=== PATIENT | female | born 1940 | race Caucasian/White ===

== ENCOUNTER 2016-08-10 07:37 | Emergency (ER) | payer OTHER ==
[~2016-08-10] VITALS: Ht 160 cm; Wt 95.3 kg
[~2016-08-10 07:37] MED LIST: MEDROL DOSEPAK1 PAC PO; TORADOL10 MG PO; VICODIN5-300 PO
--- NOTE | 2016-08-10 07:52 | ED GENERAL ADULT ---
History of Present Illness General Chief Complaint: Lower Extremity Problems Stated Complaint: L LEG PAIN AND SWELLING Source: patient Exam Limitations: no limitations Vital Signs & Intake/Output Vital Signs & Intake/Output Vital Signs Date Time Temp Pulse Resp B/P Pulse O2 O2 Flow FiO2 Ox Delivery Rate 08/10 0744 98.1 64 16 196/95 99 Room Air Allergies Coded Allergies: NO KNOWN ALLERGIES (05/01/15) Reconcile Medications HYDROCODONE/ACETAMINOPHEN (Hydrocodon-Acetaminophen 5-325) 1 TAB TAB 1 TAB PO Q4-6 PRN PAIN Ketorolac Tromethamine (Toradol) 10 MG TAB 1 TAB PO BID PAIN Methylprednisolone. (Medrol) 1 PAC PAC 1 PAC PO AD INFLAMMATION Triage Note: 75 Y/O FEMALE C/O "ACHING" PAIN DOWN L LEG X 3-4 DAYS. STATES SHE MOVED A COUCH A FEW DAYS AGO BUT CANNOT RECALL ANY OTHER TRAUMA OR INJURIES. HAS BEEN TAKING VICODIN WITH LITTLE RELIEF (LAST DOSE MIDDLE OF THE NIGHT). PT HAD OUTPATIENT ULTRASOUND 08/08/16 WHICH WAS NEGATIVE FOR DVT - HAS REPORT WITH HER. Triage Nurses Notes Reviewed? 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 No Review of Systems Review of Systems Constitutional: Denies: fever. EENTM: Denies: visual changes. Respiratory: Reports: no symptoms. Cardiovascular: Reports: no symptoms. GI: Reports: no symptoms. Genitourinary: Reports: no symptoms. Physical Exam Physical Exam General Appearance: alert, awake Comments: There is tenderness to the left lower extremity no ligament instability Core Measures ACS in differential dx? No CVA/TIA Diagnosis: No Severe Sepsis Present: No Septic Shock Present: No Progress Differential Diagnoses I considered the following diagnoses in my evaluation of the patient: [DVT, no fracture, tendinitis,] Plan of Care: The patient will follow-up with the orthopedist Initial ED EKG: none Departure Departure Disposition: HOME OR SELF CARE Condition: Stable Clinical Impression Primary Impression: Strain of left knee and leg Referrals: ANTHONY FLOOD (PCP/Family) Departure Forms: Customer Survey General Discharge Information Admission Note Spoke With: GAYLA PEREZ,DORETHA Long Documentation of Exam: Documentation of any treatments & extenuating circumstances including Concerns Regarding Discharge (functional status, medication knowledge or non-compliance, living conditions, etc.) that warrant an admission rather than observation: Critical Care Note Critical Care Note Critical Care Time: non-applicable
--- NOTE | 2016-08-10 10:08 | ED GENERAL ADULT ---
History of Present Illness General Chief Complaint: Lower Extremity Problems Stated Complaint: L LEG PAIN AND SWELLING Source: patient, family Exam Limitations: no limitations Vital Signs & Intake/Output Vital Signs & Intake/Output Vital Signs Date Time Temp Pulse Resp B/P Pulse O2 O2 Flow FiO2 Ox Delivery Rate 08/10 1034 98.2 53 18 172/98 97 Room Air 08/10 0744 98.1 64 16 196/95 99 Room Air Allergies Coded Allergies: NO KNOWN ALLERGIES (05/01/15) Reconcile Medications HYDROCODONE/ACETAMINOPHEN (Hydrocodon-Acetaminophen 5-325) 1 TAB TAB 1 TAB PO Q4-6 PRN PAIN Ketorolac Tromethamine (Toradol) 10 MG TAB 1 TAB PO BID PAIN Methylprednisolone. (Medrol) 1 PAC PAC 1 PAC PO AD INFLAMMATION Triage Note: 75 Y/O FEMALE C/O "ACHING" PAIN DOWN L LEG X 3-4 DAYS. STATES SHE MOVED A COUCH A FEW DAYS AGO BUT CANNOT RECALL ANY OTHER TRAUMA OR INJURIES. HAS BEEN TAKING VICODIN WITH LITTLE RELIEF (LAST DOSE MIDDLE OF THE NIGHT). PT HAD OUTPATIENT ULTRASOUND 08/08/16 WHICH WAS NEGATIVE FOR DVT - HAS REPORT WITH HER. Triage Nurses Notes Reviewed? yes HPI: 75-year-old woman seen for evaluation of 8/10 achy left leg pain for the past 3- 4 days. She reports recently moving a couch and denies any other trauma or injury. She does admit to mildly increased activity recently. The pain is located at the lateral left thigh/hip with radiation down to her calf. She takes naproxen twice a day for her arthritis offers her no relief. Last night she took 2 Vicodin tablets left over from a shoulder surgical procedure that only put her to sleep and did not reduce her pain. She took another tablet of Vicodin this morning that offered her no relief. She denies any altered sensation, urinary/fecal incontinence or saddle anesthesia. (ELIJAH PEREZ,JOSHUA) Past History Travel History Traveled to [place] past 21 day No Medical History Any Pertinent Medical History? 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 Yes (JOSHUA NAVA MD) Review of Systems Review of Systems Constitutional: Reports: see HPI. (JOSHUA NAVA MD) Physical Exam Physical Exam General Appearance: well developed/nourished, no apparent distress, alert, awake , comfortable Comments: General -well-developed, well-nourished obese elderly woman in no acute distress HEENT - NCAT, PERRL, EOMI, anicteric sclera Cardio - S1, S2 w/o murmurs/gallops/rubs Resp -bibasilar wheezing without crackles GI - soft, nontender, nondistended, bowel sounds present Neuro - Awake and alert, CN II - XII grossly intact Extremities - no edema, pulses intact, positive left straight leg test, staggered painful gait, unable to touch toes, no spinal tenderness Core Measures ACS in differential dx? No CVA/TIA Diagnosis: No Severe Sepsis Present: No Septic Shock Present: No (JOSHUA NAVA MD) Progress Differential Diagnoses I considered the following diagnoses in my evaluation of the patient: Sciatic nerve impingement, Lumbosacral strain, cord compression, herniated disc Plan of Care: Current Medications Sig/Vani Start time Last Medication Dose Stop Time Status Admin Ketorolac 30 MG ONCE ONE 08/10 1045 AC Tromethamine 08/10 1046 (Toradol) Initial ED EKG: none Comments: Given patient's positive straight leg test on the left without history of any inciting trauma or injury it is likely that patient is experiencing sciatic nerve pain. She was given intramuscular Toradol for pain relief. She follows with Dr. Whitlock as her primary care provider, Dr. Alcantara for her orthopedic issues and Dr. Garrido for injections in her neck. She was instructed to follow- up with these providers after discharge for further care and evaluation of her left leg pain. She was discharged with a prescription for ibuprofen 800 mg. (JOSHUA NAVA MD) Differential Diagnoses I considered the following diagnoses in my evaluation of the patient: Comments: I've evaluated more and personally. She has no known history of sciatica so we have discussed the possibility of this along with nerve root impingement secondary to disc herniation. I offered imaging here in the emergency department to rule out such a disease process but the patient has declined instead deferring to evaluation with Dr. Jerez. She will contact his office today for a follow-up appointment as soon as possible. (ALIZA PEREZ,JOSE Thompson) Departure Departure Disposition: HOME OR SELF CARE Condition: Stable Clinical Impression Primary Impression: Sciatic leg pain Referrals: CAROLYN PEREZ,ANTHONY VARGAS (PCP/Family) ANDERSON PEREZ,MARK Desouza Departure Forms: Customer Survey General Discharge Information (JOSHUA NAVA MD) Resident Co-Sign Statement Statement: ED Attending supervision documentation- [x] I saw and evaluated the patient. I have also reviewed all the pertinent lab results and diagnostic results. I agree with the findings and the plan of care as documented in the Resident's documentation. [] I have reviewed the ED Record and agree with the Resident's documentation. [] Additions or exceptions (if any) to the Resident's note and plan are summarized below: [] (ALIZA PEREZ,JOSE Thompson) Critical Care Note Critical Care Note Critical Care Time: non-applicable (JOSHUA NAVA MD)
[2016-08-10 10:34] VITALS: BP 172/98
[2016-08-10] MEDS ORDERED: MOBIC7.5 M1 PO (10:58)
[2016-08-10] MEDS ORDERED: VICODIN 5-3001 EACH PO (10:58)
== END 2016-08-10 11:09 ==
LOC: ERH 07:37
DX: M54.32 Sciatica, left side (principal)
CPT/HCPCS: 96372; J1885

== ENCOUNTER 2017-09-17 09:59 | Inpatient (IN) | payer OTHER ==
[~2017-09-17] VITALS: Ht 160 cm; Wt 86.2 kg
[~2017-09-17 09:59] MED LIST changes: +ALEVE220 M2 PO; +ALLOPURINOL100 M1 PO; +AMLODIPINE BESYL5 M1 PO; +ASPIRIN81 M4 PO; +ATENOLOL50 M1 PO; +ATORVASTATIN CA40 M1 PO; +BREO ELLIPTA 11 EACH INH; +CHROMIUM PIC1000 MCG PO; +DAILY MULTIPLE1 EACH PO; +FLUOXETINE HCL20 M2 PO; +FUROSEMIDE20 M1 PO; +GLUCOSAMINE H1500 MG PO; +LEVOTHYROXINE100 MC1 PO; +LORAZEPAM0.5 M1 PO; +MAGNESIUM OXID400 M1 PO; +METFORMIN HCL500 M4 PO; +MOBIC7.5 M1 PO; +PLAVIX75 M1 PO; +POTASSIUM CHLO10 ME5 PO; +PROBIOTIC1 EACH PO; +SIMVASTATIN20 M2 PO; +TYLENOL WITH C1 EACH PO; +VALSARTAN-HCTZ1 EAC3 PO; +VALSARTAN320 M1 PO; +VICODIN 5-3001 EACH PO; +VITAMIN B-121000 MC3 PO; +VITAMIN D32000 UNI1 PO
--- NOTE | 2017-09-17 12:17 | ED GENERAL ADULT ---
History of Present Illness General Chief Complaint: General Adult Stated Complaint: PER DAUGHTER CAN'T WALK, SWOLLEN Source: patient, family Exam Limitations: no limitations Vital Signs & Intake/Output Vital Signs & Intake/Output Vital Signs Date Time Temp Pulse Resp B/P B/P Pulse O2 O2 Flow FiO2 Mean Ox Delivery Rate 09/17 1240 97.8 66 18 124/71 98 Room Air 09/17 1151 Room Air 09/17 1022 97.7 62 20 122/66 96 Room Air Allergies Coded Allergies: NO KNOWN ALLERGIES (05/01/15) Reconcile Medications Allopurinol 100 MG TABLET 1 TAB PO DAILY GOUT (Reported) Amlodipine Besylate 5 MG TABLET 5 MG PO DAILY HTN . Aspirin (Aspirin*) 81 MG TAB.CHEW 1 TAB PO DAILY HEART HEALTH (Reported) Atenolol 50 MG TABLET 1 TAB PO DAILY HEART (Reported) Atorvastatin Calcium 40 MG TABLET 40 MG PO 2030 STROKE PREVENTION . Cholecalciferol (Vitamin D3) (Vitamin D3) 2,000 UNIT TABLET 1 TAB PO DAILY VITAMIN SUPPORT (Reported) Chromium Picolinate 1,000 MCG TABLET 0.5 TAB PO DAILY SUPPLEMENT (Reported) Clopidogrel Bisulfate (Plavix) 75 MG TABLET 75 MG PO DAILY STROKE PREVENTION . Cyanocobalamin (Vitamin B-12) 1,000 MCG TABLET 1 TAB PO DAILY VITAMIN SUPPORT (Reported) Fluoxetine HCl 20 MG CAPSULE 2 CAP PO DAILY DEPRESSION (Reported) Fluticasone/Vilanterol (Breo Ellipta 100-25 Mcg INH) 100 MCG-25 MCG/DOSE BLST.W.DEV 1 PUFF INH DAILY BREATHING PROBLEMS (Reported) Lactobacillus Acidophilus (Probiotic) 10 BILLION CELL CAPSULE 1 CAP PO DAILY GI (Reported) Levothyroxine Sodium 100 MCG TABLET 1 TAB PO DAILY AC THYROID (Reported) Lorazepam 0.5 MG TABLET 1 TAB PO BIDP PRN DEPRESSION (Reported) Magnesium Oxide 400 MG TABLET 1 TAB PO TID SUPPLEMENT (Reported) Metformin HCl (Metformin HCl ER) 500 MG TAB.ER.24H 1 TAB PO TID DIABETES ( Reported) Multivitamin (Daily Multiple Vitamin) 1 EACH TABLET 1 TAB PO DAILY VITAMIN SUPPORT (Reported) Potassium Chloride 10 MEQ TAB.ER.PRT 1 TAB PO DAILY PRN VITAMIN (Reported) Tylenol With Codeine (Tylenol With Codeine #3 Tablet) 300 MG-30 MG TABLET 1 TAB PO BIDP PRN PAIN Valsartan 320 MG TABLET 1 TAB PO DAILY HEART (Reported) Valsartan/Hydrochlorothiazide (Valsartan-Hctz 320-25 MG Tab) 320 MG-25 MG TABLET 1 TAB PO DAILY HTN (Reported) Triage Note: PT STATES SWELLING IN ARMS, LEGS, HANDS X 1 WEEK. PT STATES SHE HAD BLOOD WORK FOR [employer] SUNDAY WHICH WAS NEG. UNABLE TO WALK D/T SWELLING Triage Nurses Notes Reviewed? yes Onset: Abrupt Duration: week(s):, constant, continues in ED Timing: recent history Injury Environment: home No Modifying Factors: none HPI: 77-year-old female comes into emergency room for diffuse generalized pain. She reports that she has increased swelling in her legs and arms. She was admitted back in fall time of 2017 for a CVA. [facility] was [facility] from [facility] about [facility] weeks ago. For the past week she has had increased weakness and cannot ambulate. She has diffuse pain especially in her legs and arms bilaterally. Denies any fever chills vomiting cough. Comes in for further evaluation from home. (Edmond Piper) Past History Travel History Traveled to [place] past 21 day No Medical History Any Pertinent Medical History? 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 No (Edmond Piper) Review of Systems Review of Systems Constitutional: Reports: see HPI. EENTM: Reports: no symptoms. Respiratory: Reports: no symptoms. Cardiovascular: Reports: no symptoms. GI: Reports: no symptoms. Genitourinary: Reports: no symptoms. Musculoskeletal: Reports: see HPI. Skin: Reports: no symptoms. Neurological/Psychological: Reports: no symptoms. Hematologic/Endocrine: Reports: no symptoms. Immunologic/Allergic: Reports: no symptoms. All Other Systems: Reviewed and Negative (Edmond Piper) Physical Exam Physical Exam General Appearance: well developed/nourished, alert, awake Head: atraumatic, normal appearance Eyes: Bilateral: normal appearance, EOMI. Ears, Nose, Throat: normal ENT inspection, hearing grossly normal Neck: normal inspection Respiratory: normal breath sounds, no respiratory distress Cardiovascular: regular rate/rhythm Gastrointestinal: soft Back: normal inspection Extremities: normal inspection, pedal edema (1+ BLATERAL) Neurologic/Psych: awake, alert, oriented x 3, 3/5 STRENGTH IN ALL EXTREMITIES Skin: intact, normal color Core Measures ACS in differential dx? No CVA/TIA Diagnosis: No Sepsis Present: No Sepsis Focused Exam Completed? No (Dain ARAUZ,Edmond) Progress Differential Diagnoses I considered the following diagnoses in my evaluation of the patient: Kidney failure, liver cirrhosis, DVT, dependent edema, anasarca, malignancy, autoimmune disease, cellulitis, Plan of Care: Orders Procedure Date/time Status Regular Diet 09/18 B Active Heart Healthy Diet 09/17 D Complete Misc Message 09/17 1612 Active ED Holding Orders 09/17 1612 Active Admit to inpatient 09/17 1612 Active Vital Signs 09/17 1612 Active Code Status 09/17 1612 Active Patient Data 09/17 1555 Active Add-on Test (ER Only) 09/17 1554 Active Add-on Test (ER Only) 09/17 1451 Active BLOOD CULTURE 09/17 1451 Active CULTURE,URINE 09/17 1412 Active LACTIC ACID 09/17 1228 Complete WESTERGREN SED RATE 09/17 1215 Complete URINALYSIS 09/17 1140 Complete THYROID STIMULATING HORMONE 09/17 1140 Complete TROPONIN LEVEL 09/17 1140 Complete C-REACTIVE PROTEIN 09/17 1140 Complete COMPREHENSIVE METABOLIC PANEL 09/17 1140 Complete CBC WITHOUT DIFFERENTIAL 09/17 1140 Complete B-TYPE NATRIURETIC PEP (BNP) 09/17 1140 Complete EKG 09/17 1140 Active Laboratory Tests 09/17/17 1412: Urine Color YEL, Urine Clarity HAZY H, Urine pH 6.0, Ur Specific [place] 1.010, Urine Protein NEG, Urine Ketones NEG, Urine Nitrite NEG, Urine Bilirubin NEG, Urine Urobilinogen 0.2, Ur Leukocyte Esterase MOD H, Ur Microscopic SEDIMENT EXAMINED, Urine WBC 15-25 H, Ur Epithelial Cells FEW, Urine Hemoglobin NEG, Urine Glucose NEG 09/17/17 1228: ESR Westergren 85 H 09/17/17 1228: Anion Gap 12, Estimated GFR > 60, BUN/Creatinine Ratio 27.1 H, Glucose 145 H, Lactic Acid 1.6, Calcium 9.9, Total Bilirubin 0.5, AST 15, ALT 32, Alkaline Phosphatase 64, Troponin I < 0.01, C-Reactive Prot, Quant 3.0 H, Pro-B- Natriuretic Pept 330 H, Total Protein 7.3, Albumin 3.8, Globulin 3.5, Albumin/ Globulin Ratio 1.1, TSH 4.520 H, CBC w Diff NO MAN DIFF REQ, RBC 3.86 L, MCV 89.9, MCH 30.8, MCHC 34.3, RDW 14.2, MPV 8.4, Gran % 75.9 H, Lymphocytes % 13.8 L, Monocytes % 8.1, Eosinophils % 2.0, Basophils % 0.2, Absolute Granulocytes 10.6 H, Absolute Lymphocytes 1.9, Absolute Monocytes 1.1 H, Absolute Eosinophils 0.3, Absolute Basophils 0 09/17/17 1215: C-Reactive Prot, Quant Cancelled 09/17/17 1146: TSH Cancelled Microbiology 09/17 1610 BLOOD: Blood Culture - RECD 09/17 1605 BLOOD: Blood Culture - RECD 09/17 1412 URINE ROUT: Urine Culture - RECD Diagnostic Imaging: Viewed by Me: Radiology Read. Discussed w/RAD: Radiology Read. Radiology Impression: PATIENT: KATHE JOSÉ PRESENT AGE: 77 PATIENT ACCOUNT NO: [id number] : 40 LOCATION: [facility] ORDERING PHYSICIAN: Edmond ARAUZ SERVICE DATE: 09/17/17 EXAM TYPE : US - US-EXT BILAT VENOUS DOPPLER EXAMINATION: US TRIPLEX OF LOWER EXTREMITIES, BILATERAL CLINICAL INFORMATION: Swelling in legs. Bilateral lower extremity pain. COMPARISON: 08/31/2017 left lower extremity TECHNIQUE: Color-flow triplex imaging with spectral analysis and compression Doppler were performed on the lower extremities. FINDINGS: Respiratory variation, normal compression and augmented flow are noted throughout the lower extremities. The visualized common femoral vein, superficial femoral vein, profunda femoral vein, popliteal vein and midcalf peroneal and posterior tibial venous segments show no evidence of deep venous thrombosis. Left sided cystic collection in the medial popliteal fossa measuring 4.8 x 1.2 x 2.8 cm. IMPRESSION: 1. No evidence of deep venous thrombosis involving the lower extremities. 2. Cystic collection within the medial left popliteal fossa consistent with a Rodriguez's cyst. DICTATED BY: Racehl Chinchilla MD DATE/TIME DICTATED:09/17/171342 CIVIL ENGINEERING DRAFTSPERSON:SOL DATE/TIME TRANSCRIBED:09/17/171342 CONFIDENTIAL, DO NOT COPY WITHOUT APPROPRIATE AUTHORIZATION. <Electronically signed in Other Vendor System> SIGNED BY: Rachel Chinchilla MD 09/17/171346, PATIENT: KATHE JOSÉ PRESENT AGE: 77 PATIENT ACCOUNT NO: [id number] : 40 LOCATION: [facility] ORDERING PHYSICIAN: Edmond ARAUZ SERVICE DATE: 09/17/17 EXAM TYPE : RAD - XRY-CHEST XRAY, TWO VIEWS EXAMINATION: XR CHEST CLINICAL INFORMATION: Hand swelling. Unable to walk. COMPARISON: Chest radiograph dated 11/17/2016. Chest CT dated 04/25/2017 was reviewed. TECHNIQUE: 2 views of the chest were obtained. FINDINGS: The cardiomediastinal silhouette is stable in appearance. Again noted are increased interstitial markings involving both the upper and lower lungs bilaterally. The appearance is similar to the prior study from 11/17. There is no pleural effusion. There is no pneumothorax. There are degenerative changes of the midthoracic spine. IMPRESSION: Stable appearance of the heart and lungs. Increased interstitial markings involving both the upper and lower lobes likely represents underlying interstitial fibrotic disease. DICTATED BY: Fortino Martin MD DATE/TIME DICTATED:09/17/171256 CIVIL ENGINEERING DRAFTSPERSON:SOL DATE/TIME TRANSCRIBED:09/17/171256 CONFIDENTIAL, DO NOT COPY WITHOUT APPROPRIATE AUTHORIZATION. <Electronically signed in Other Vendor System> SIGNED BY: Fortino Martin MD 09/17/17 1304 Initial ED EKG: normal sinus rhythm, rate (51) (Edmond Piper) Departure Departure Disposition: STILL A PATIENT Condition: Stable Clinical Impression Primary Impression: UTI (urinary tract infection) Secondary Impressions: Leukocytosis, Multifactorial gait disorder Referrals: Salome Cortez (PCP/Family) Departure Forms: Customer Survey General Discharge Information Admission Note Spoke With: Mookie Ramirez MD Documentation of Exam: Documentation of any treatments & extenuating circumstances including Concerns Regarding Discharge (functional status, medication knowledge or non-compliance, living conditions, etc.) that warrant an admission rather than observation: Patient has an elevated white blood cell count sedimentation rate and CRP. Patient will require infectious disease consultation. Rheumatology consultation. Autoimmune workup. IV antibiotics. Physical therapy consultation. Case management consultation. Patient is unable to ambulate here in the emergency room. Unsafe for discharge. (Edmond Piper) PA/DRIER OPERATOR HELPER Co-Sign Statement Statement: ED Attending supervision documentation- [X] I saw and evaluated the patient. I have also reviewed all the pertinent lab results and diagnostic results. I agree with the findings and the plan of care as documented in the PA's/DRIER OPERATOR HELPER's documentation. Patient presents for evaluation of worsening trouble ambulating over the past week. Patient states he got to the point where she was unable to ambulate at all. Physical examination reveals no obvious cranial nerve deficits but weakness of the lower extremities. [] I have reviewed the ED Record and agree with the PA's/DRIER OPERATOR HELPER's documentation. [] Additions or exceptions (if any) to the PAs/DRIER OPERATOR HELPER's note and plan are summarized below: [] (Anay PEREZ,Flaco Long) Critical Care Note Critical Care Note Critical Care Time: non-applicable (Edmond Piper)
[2017-09-17 12:38] LABS: ABSOLUTE BASOPHIL COUNT 0 /CUMM (0.0-0.2); ABSOLUTE EOSINOPHIL COUNT 0.3 /CUMM (0.0-0.7); ABSOLUTE GRANULOCYTE CT 10.6 /CUMM (1.4-6.5); ABSOLUTE LYMPH COUNT 1.9 /CUMM (1.2-3.4); ABSOLUTE MONOCYTE COUNT 1.1 /CUMM (0.10-0.60); BASOPHIL % 0.2 % (0.0-2.0); GRANULOCYTE % 75.9 % (42.2-75.2); HEMATOCRIT 34.7 % (37-47); MEAN CORPUSCULAR HGB 30.8 PG (27.0-31.0); MEAN CORPUSCULAR HGB CONC 34.3 G/DL (33.0-37.0); MEAN CORPUSCULAR VOLUME 89.9 FL (81.0-99.0); MEAN PLATELET VOLUME 8.4 FL (7.4-10.4); PLATELET COUNT 398 /CUMM (130-400); RBC DISTRIBUTION WIDTH 14.2 % (11.5-14.5); RED BLOOD CELL CT 3.86 /CUMM (4.20-5.40)
--- NOTE | 2017-09-17 13:04 | RADIOLOGY REPORT ---
EXAMINATION: XR CHEST CLINICAL INFORMATION: Hand swelling. Unable to walk. COMPARISON: Chest radiograph dated 11/17/2016. Chest CT dated 04/25/2017 was reviewed. TECHNIQUE: 2 views of the chest were obtained. FINDINGS: The cardiomediastinal silhouette is stable in appearance. Again noted are increased interstitial markings involving both the upper and lower lungs bilaterally. The appearance is similar to the prior study from 11/17/2016. There is no pleural effusion. There is no pneumothorax. There are degenerative changes of the midthoracic spine. IMPRESSION: Stable appearance of the heart and lungs. Increased interstitial markings involving both the upper and lower lobes likely represents underlying interstitial fibrotic disease.
--- NOTE | 2017-09-17 13:47 | ULTRASOUND REPORT ---
EXAMINATION: US TRIPLEX OF LOWER EXTREMITIES, BILATERAL CLINICAL INFORMATION: Swelling in legs. Bilateral lower extremity pain. COMPARISON: 08/31/2017 left lower extremity TECHNIQUE: Color-flow triplex imaging with spectral analysis and compression Doppler were performed on the lower extremities. FINDINGS: Respiratory variation, normal compression and augmented flow are noted throughout the lower extremities. The visualized common femoral vein, superficial femoral vein, profunda femoral vein, popliteal vein and midcalf peroneal and posterior tibial venous segments show no evidence of deep venous thrombosis. Left sided cystic collection in the medial popliteal fossa measuring 4.8 x 1.2 x 2.8 cm. IMPRESSION: 1. No evidence of deep venous thrombosis involving the lower extremities. 2. Cystic collection within the medial left popliteal fossa consistent with a Rodriguez's cyst.
--- NOTE | 2017-09-17 16:08 | History & Physical ---
Eduardo Cuevas MD 09/17/17 2007: General Information and HPI MD Statement: I have seen and personally examined KATHE JOSÉ and documented this H&P. The patient is a 77 year old F who presented with a patient stated chief complaint of [joint tenderness and swelling]. Source of Information: patient, family Exam Limitations: no limitations History of Present Illness: Patient is a 77-year-old female with a PMH significant for HTN, HLD, DM, spinal stenosis, hypothyroidism, CVA 6 months ago who presents to the [facility] ED complaining of joint pain and swelling. She was released from short-term rehabilitation secondary to her CVA approximately 3 weeks ago. For the past 2 weeks she has had worsening left knee swelling and pain for which she went to see Dr. Alvarez of [facility] she underwent a arthrocentesis but does not know the results. Since that time she has had worsening right knee swelling and pain along with pain in her shoulders and swelling and pain of her first 3 MCP joints bilaterally. She rates the pain is constant and 5/10 worse on her left knee and has been limiting her ability to walk and move. She denies any trauma had been able to ambulate after being discharged from short-term rehabilitation. Allergies/Medications Allergies: Coded Allergies: NO KNOWN ALLERGIES (05/01/15) Home Med list Allopurinol 100 MG TABLET 1 TAB PO DAILY GOUT (Reported) Amlodipine Besylate 5 MG TABLET 5 MG PO DAILY HTN . Aspirin (Aspirin*) 81 MG TAB.CHEW 1 TAB PO DAILY HEART HEALTH (Reported) Atenolol 50 MG TABLET 1 TAB PO DAILY HEART (Reported) Atorvastatin Calcium 40 MG TABLET 40 MG PO 2030 STROKE PREVENTION . Cholecalciferol (Vitamin D3) (Vitamin D3) 2,000 UNIT TABLET 1 TAB PO DAILY VITAMIN SUPPORT (Reported) Chromium Picolinate 1,000 MCG TABLET 0.5 TAB PO DAILY SUPPLEMENT (Reported) Clopidogrel Bisulfate (Plavix) 75 MG TABLET 75 MG PO DAILY STROKE PREVENTION . Cyanocobalamin (Vitamin B-12) 1,000 MCG TABLET 1 TAB PO DAILY VITAMIN SUPPORT (Reported) Fluoxetine HCl 20 MG CAPSULE 2 CAP PO DAILY DEPRESSION (Reported) Fluticasone/Vilanterol (Breo Ellipta 100-25 Mcg INH) 100 MCG-25 MCG/DOSE BLST.W.DEV 1 PUFF INH DAILY BREATHING PROBLEMS (Reported) Lactobacillus Acidophilus (Probiotic) 10 BILLION CELL CAPSULE 1 CAP PO DAILY GI (Reported) Levothyroxine Sodium 100 MCG TABLET 1 TAB PO DAILY AC THYROID (Reported) Lorazepam 0.5 MG TABLET 1 TAB PO BIDP PRN DEPRESSION (Reported) Magnesium Oxide 400 MG TABLET 1 TAB PO TID SUPPLEMENT (Reported) Metformin HCl (Metformin HCl ER) 500 MG TAB.ER.24H 1 TAB PO TID DIABETES ( Reported) Multivitamin (Daily Multiple Vitamin) 1 EACH TABLET 1 TAB PO DAILY VITAMIN SUPPORT (Reported) Potassium Chloride 10 MEQ TAB.ER.PRT 1 TAB PO DAILY PRN VITAMIN (Reported) Tylenol With Codeine (Tylenol With Codeine #3 Tablet) 300 MG-30 MG TABLET 1 TAB PO BIDP PRN PAIN Valsartan 320 MG TABLET 1 TAB PO DAILY HEART (Reported) Valsartan/Hydrochlorothiazide (Valsartan-Hctz 320-25 MG Tab) 320 MG-25 MG TABLET 1 TAB PO DAILY HTN (Reported) Past History Travel History Traveled to [place] past 21 day No Medical History Neurological: CVA EENT: NONE Cardiovascular: hypertension, hyperlipidemia Respiratory: MASS ON CXR Gastrointestinal: NONE Hepatic: NONE Renal: NONE Musculoskeletal: spinal stenosis Psychiatric: depression Endocrine: hypothyroidism Blood Disorders: NONE Cancer(s): NONE PROSTHETICS ASSISTANT/Reproductive: NONE History of MRSA: No History of VRE: No History of CDIFF: No Surgical History Surgical History: non-contributory Past Family/Social History Family History Relations & Conditions if any Relation not specified for: FH: rheumatoid arthritis Psychosocial History Who Do You Live With? spouse Services at Home: None Primary Language: Cook Islander Smoking Status: Current Everyday Smoker ETOH Use: denies use Illicit Drug Use: denies illicit drug use Living Will? yes Functional Ability ADLs Independent: dressing, eating, toileting, bathing. Ambulation: independent IADLs Independent: shopping, housework, finances, food prep, telephone, transportation , medication admin. Review of Systems Review of Systems Constitutional: Denies: chills, fever. Cardiovascular: Reports: no symptoms. Respiratory: Reports: no symptoms. GI: Reports: nausea. Denies: diarrhea, melena, bloody stool, vomiting. Genitourinary: Reports: no symptoms. Musculoskeletal: Reports: see HPI, joint pain, joint swelling, muscle pain. Skin: Reports: no symptoms. Neurological/Psychological: Denies: headache, numbness, tingling. Exam & Diagnostic Data Last 24 Hrs of Vital Signs/I&O Vital Signs Date Time Temp Pulse Resp B/P B/P Pulse O2 O2 Flow FiO2 Mean Ox Delivery Rate 09/17 2231 63 124/60 09/17 2141 98.1 53 18 124/60 95 09/17 1812 97.9 59 20 140/56 94 09/17 1726 98.5 63 16 116/53 95 Room Air 09/17 1453 97.4 65 18 126/69 97 Room Air 09/17 1240 97.8 66 18 124/71 98 Room Air 09/17 1151 Room Air 09/17 1022 97.7 62 20 122/66 96 Room Air Intake & Output 09/17 1600 09/17 0800 09/17 0000 Intake Total 100 Output Total 400 Balance -300 Intake, IV 100 Output, Urine 400 Patient 190 lb Weight Weight Reported by Patient Measurement Method Physical Exam General Appearance Alert, Oriented X3, Cooperative, No Acute Distress Skin Temp/Moisture Exam: Warm/Dry Sepsis Skin Exam (color): Normal for Ethnicity Cardiovascular Regular Rate, Normal S1, Normal S2 Lungs Clear to Auscultation, Normal Air Movement Abdomen Normal Bowel Sounds, Soft, No Tenderness Neurological Normal Speech, Normal Tone, Sensation Intact, Cranial Nerves 3-12 NL Extremities swelling of knees R>L, mild TTP with severe pain with active and passive ROM, Shoulder pain with active and passive ROM, swelling and TTP of the MCP joints of 1-3 digits bilaterally Last 24 Hrs of Labs/Rodríguez: Laboratory Tests 09/17/17 1412: Urine Color YEL, Urine Clarity HAZY H, Urine pH 6.0, Ur Specific [place]ge 1.010, Urine Protein NEG, Urine Ketones NEG, Urine Nitrite NEG, Urine Bilirubin NEG, Urine Urobilinogen 0.2, Ur Leukocyte Esterase MOD H, Ur Microscopic SEDIMENT EXAMINED, Urine WBC 15-25 H, Ur Epithelial Cells FEW, Urine Hemoglobin NEG, Urine Glucose NEG 09/17/17 1228: ESR Westergren 85 H 09/17/17 1228: Anion Gap 12, Estimated GFR > 60, BUN/Creatinine Ratio 27.1 H, Glucose 145 H, Lactic Acid 1.6, Calcium 9.9, Total Bilirubin 0.5, AST 15, ALT 32, Alkaline Phosphatase 64, Troponin I < 0.01, C-Reactive Prot, Quant 3.0 H, Pro-B- Natriuretic Pept 330 H, Total Protein 7.3, Albumin 3.8, Globulin 3.5, Albumin/ Globulin Ratio 1.1, TSH 4.520 H, CBC w Diff NO MAN DIFF REQ, RBC 3.86 L, MCV 89.9, MCH 30.8, MCHC 34.3, RDW 14.2, MPV 8.4, Gran % 75.9 H, Lymphocytes % 13.8 L, Monocytes % 8.1, Eosinophils % 2.0, Basophils % 0.2, Absolute Granulocytes 10.6 H, Absolute Lymphocytes 1.9, Absolute Monocytes 1.1 H, Absolute Eosinophils 0.3, Absolute Basophils 0 09/17/17 1215: C-Reactive Prot, Quant Cancelled 09/17/17 1146: TSH Cancelled Microbiology 09/17 1610 BLOOD: Blood Culture - RECD 09/17 1605 BLOOD: Blood Culture - RECD 09/17 1412 URINE ROUT: Urine Culture - RECD Diagnostic Data EKG Results NSR, HR 51, QTc 510 CXR Results FINDINGS: The cardiomediastinal silhouette is stable in appearance. Again noted are increased interstitial markings involving both the upper and lower lungs bilaterally. The appearance is similar to the prior study from 11/17/2016. There is no pleural effusion. There is no pneumothorax. There are degenerative changes of the midthoracic spine. IMPRESSION: Stable appearance of the heart and lungs. Increased interstitial markings involving both the upper and lower lobes likely represents underlying interstitial fibrotic disease. Other Results FINDINGS: Respiratory variation, normal compression and augmented flow are noted throughout the lower extremities. The visualized common femoral vein, superficial femoral vein, profunda femoral vein, popliteal vein and midcalf peroneal and posterior tibial venous segments show no evidence of deep venous thrombosis. Left sided cystic collection in the medial popliteal fossa measuring 4.8 x 1.2 x 2.8 cm. IMPRESSION: 1. No evidence of deep venous thrombosis involving the lower extremities. 2. Cystic collection within the medial left popliteal fossa consistent with a Rodriguez's cyst. Assessment/Plan Assessment: Patient is a 77-year-old female with a PMH significant for HTN, HLD, DM, spinal stenosis, hypothyroidism, CVA 6 months ago who presents to the [facility] ED complaining of joint pain and swelling. She was released from short-term rehabilitation secondary to her CVA approximately 3 weeks ago. She said two- week history of worsening swelling and pain in multiple joints. She has been sleeping as outpatient by orthopedics and has had a arthrocentesis done. Labs are significant for leukocytosis, elevated ESR, elevated CRP Problem list #Joint swelling and pain, family history of autoimmune disorder, possibly PMR or RA #Leukocytosis, patient does have asymptomatic bacteriuria on UA #Chronic medical problems Plan -Admit to general medicine -Continue adequate pain control -Obtain records from [facility] for arthrocentesis results -Orthopedic consult in a.m. -Rheumatology consult in the a.m. -Follow-up blood and urine cultures, watch off of antibiotics for now -Continue home medications, hold metformin -NovoLog sliding scale Diet: Diabetic diet DVT prophylaxis:ALPS, SC heparin Code status: DNR/DNI As Ranked By This Provider Problem List: 1. Leukocytosis 2. Knee effusion, left Core Measures/Misc (03/11) Acute Coronary Syndrome ACS Diagnosis: No Congestive Heart Failure Congestive Heart Failure Diagnosis No Cerebrovascular Accident CVA/TIA Diagnosis: No VTE (View Protocol) VTE Risk Factors Age>40 No Mechanical VTE Prophylaxis d/t N/A MechProphylax Ordered No VTE Pharm Prophylaxis d/t NA PharmProphylax ordered Sepsis (View protocol) Sepsis Present: No Ginna Gilman MD 09/17/172103: Resident Review Statement Resident Statement: examined this patient, discussed with finance accounting internship, agreed with finance accounting internship, reviewed images, amended to note Other Findings: 77-year-old female with past medical history of HTN, HLD, DM, spinal stenosis, CVA (2017), hypothyroidism, gout, depression presents with complaints of diffuse generalized pain. She reports that she has increased swelling and pain in her left knee joint, and eventually Rt knee joint and bilateral finger joints. She denies fever/chills vomiting, cough, rash or sick contact. She was seen at [facility] 1 week ago where she had arthrocentesis of the Lt knee which was sent for tests and she received a cortisone shot in the same knee. Problem List 1. Gerealized Joint Pain and Swelling r/o Gout flare, RA, polymyalgia rheumatica 2. Generalized deconditioning 3. Asymptomatic Bacteriuria Plan Admit to general medicine floor Hold metformin for now Blood cultures x 2; Urine culture Patient received a dose of Ceftriaxone in the ER; Hold off antibiotics for now, watch for fever, urinary symptoms Rheumatology consult in AM Insulin sliding scale amd fingersticks glucose TIDAC and HS Physical therapy Heart healthy diet Adequate Pain control Resume her impt medications Follow attending recommendations Mookie Ramirez MD 09/17/17 0273: Attending MD Review Statement Attending Statement Attending Statement: examined this patient, discuss w/resident/PA/HVAC ENGINEER, agreed w/resident/PA/HVAC ENGINEER, reviewed EMR data (avail), reviewed images, amended to note Attending Assessment/Plan: The patient is a 77 yo female with h/o HTN, HL, DM2, spinal stenosis, hypothyroid, and prior CVA (6 months ago) who presented in [place] [facility] with c/o joint pain and swelling (mostly knees), and difficulty ambulating. She was seen by orthopedics and underwent knee arthrocentesis. Her ESR and CRP were noted to be elevated and her PCP was questioning an auto-immune disease (has FH of RA). Her left knee has had more pain than right. She was recently in STR and discharged several weeks ago. Physical Exam: VS: T 97.7, P 62, R 20, BP 122/66, PO 96% RA HEENT: eyes- PERRLA, EOMI ashley- moist mucosa Neck: no JVD, bruits Chest: clear Cor: RRR, nl S1, S2 w/o murm Abd: BS+, soft, NT Ext: + bilat knee swelling (R>L) with tenderness w/o warmth, pain on movement of joints bilaterally, also with shoulder pain on movement bilaterally. Neuro: non-focal Labs/Tests- as above Impression/Plan: #Gait Abnormality- unable to ambulate per patient with progressive symptoms. ED stated her PCP was questioning auto-immune disorder (?RA, PMR, etc.). ESR and CRP have been elevated. Plan: Admit to medical floor. PT/OT evaluations. Check if any OP labs have been done by PCP for rheumatoid condition. Rheumatology and Orthopedic Consults (has seen [facility]). Will discuss steroid therapy with rheumatology. Will check results of arthrocentesis from [facility] tomorrow. PT/OT consults- most likely will need STR. #Leukocytosis- noted on CBC. No definite evidence of focal infection. Plan: Will follow-up WBC and cultures. #DM2- on Metformin. Plan: Will hold Metformin and follow glucose levels and give sliding scale insulin. #Hypothyroid- on Levothyroxine. Plan: Check if TSH has been evaluated recently. Continue Levothyroxine. #HTN- on Valsartan/Amlodipine/Atenolol. Plan: Continue Amlodipine/Atenolol and substitute Losartan for Valsartan while in hospital. #H/O CVA- on Plavix/ASA, Atorvastatin. Plan: Continue Plavix, ASA and Atorvastatin.
[2017-09-17 18:00] VITALS: BP 116/60
[2017-09-17 18:12] VITALS: BP 140/56
[2017-09-17 21:41] VITALS: BP 124/60
[2017-09-17 22:31] VITALS: BP 124/60
--- NOTE | 2017-09-17 22:58 | Event Note ---
See Addendum Event Note Event Note: S: patient was given 2x dose of losartan due to medical error, alerted to this error by the pharmacy B: patient admitted tonight and received evening meds with dose of losartan entered incorrectly AR: order was corrected after one dose given. Increased IV fluid rate to 100 mL / hour. I have alerted the nurse to monitor the patient's BP closely. The night team has also been informed
[2017-09-17 23:33] VITALS: BP 140/70
--- NOTE | 2017-09-17 23:59 | Admission Certification ---
Admission Certification Certification Statement - As attending physician, I certify that at the time of - admission, based on clinical presentation, severity of - symptoms, need for further diagnostic testing and - therapeutic interventions, and risk of adverse outcomes - without in-hospital treatment, in my clinical assessment, - this patient requires an acute hospital stay for a minimum - of two nights or longer. I have also considered psychsocial - factors such as support system, advanced age, financial - issues, cognitive issues, and failed out-patient treatments, - past re-admission history, safety of patient, and lack of - compliance as applicable. Specific rationale supporting this admission is: The patient presents unable to ambulate- possible auto-immune disorder. Has bilateral knee effusions. Needs rheumatology and orthopedic evaluations. PT/OT and possible STR. May need steroid therapy.
[2017-09-18 05:27] VITALS: BP 130/52
[2017-09-18 08:25] LABS: ABSOLUTE BASOPHIL COUNT 0 /CUMM (0.0-0.2); ABSOLUTE EOSINOPHIL COUNT 0.3 /CUMM (0.0-0.7); ABSOLUTE GRANULOCYTE CT 8.8 /CUMM (1.4-6.5); ABSOLUTE LYMPH COUNT 1.3 /CUMM (1.2-3.4); ABSOLUTE MONOCYTE COUNT 0.6 /CUMM (0.10-0.60); BASOPHIL % 0.4 % (0.0-2.0); EOSINOPHIL % 2.8 % (0-5); GRANULOCYTE % 79.6 % (42.2-75.2); HEMATOCRIT 33.3 % (37-47); MEAN CORPUSCULAR HGB 30.9 PG (27.0-31.0); MEAN CORPUSCULAR HGB CONC 34.1 G/DL (33.0-37.0); MEAN CORPUSCULAR VOLUME 90.5 FL (81.0-99.0); MEAN PLATELET VOLUME 9.1 FL (7.4-10.4); PLATELET COUNT 334 /CUMM (130-400); RBC DISTRIBUTION WIDTH 14.1 % (11.5-14.5); RED BLOOD CELL CT 3.68 /CUMM (4.20-5.40); WHITE BLOOD CELL COUNT 11.1 /CUMM (4.8-10.8)
--- NOTE | 2017-09-18 13:06 | PN- Housestaff ---
Magdiel PEREZ,[facility] 09/18/17 1305: Subjective Follow-up For: Joint swelling and pain Subjective: Patient seen and examined. Resting comfortably in the bed. Complains of bilateral knee and ankle wrist and arm, elbow and metacarpal phalangeal joint swelling and pain. Patient was using a walker at baseline. Unable to ambulate now. Review of Systems Constitutional: Reports: see HPI. Objective Last 24 Hrs of Vital Signs/I&O Vital Signs Date Time Temp Pulse Resp B/P B/P Pulse O2 O2 Flow FiO2 Mean Ox Delivery Rate 09/18 1429 98.3 56 18 122/62 95 Room Air 09/18 0917 62 132/64 09/18 0917 62 132/64 09/18 0527 98.2 55 20 130/52 94 09/17 2333 59 140/70 09/17 2231 63 124/60 09/17 2231 63 124/60 09/17 2141 98.1 53 18 124/60 95 09/17 1812 97.9 59 20 140/56 94 09/17 1800 98.5 63 16 116/60 95 Room Air 09/17 1726 98.5 63 16 116/53 95 Room Air Intake & Output 09/18 1600 09/18 0800 09/18 0000 Intake Total 1520 640 910 Output Total 650 0 Balance 870 640 910 Intake, IV 800 400 510 Intake, Oral 720 240 400 Number 0 Bowel Movements Output, Urine 650 0 Patient 190 lb Weight Weight Reported by Patient Measurement Method Physical Exam General Appearance: Alert, Oriented X3 Skin: No Rashes Cardiovascular: Normal S1, Normal S2 Lungs: Clear to Auscultation, Normal Air Movement Abdomen: Normal Bowel Sounds, Soft Neurological: Normal Speech Extremities: b/l knee swelling and tenderness, wrist swelling and tenderness and MCP swelling tenderness Current Medications: Current Medications Sig/Vani Start time Last Medication Dose Route Stop Time Status Admin Acetaminophen 1,000 MG ONCE ONE 09/18 0330 DC 09/18 N/A 1 UNIT IV 09/18 034 0324 Acetaminophen 1,000 MG ONCE ONE 09/17 1900 DC 09/17 N/A 1 UNIT IV 09/17 191 195 Acetaminophen 650 MG Q6P PRN 09/17 1700 AC PO Allopurinol 100 MG DAILY 09/18 1128 AC 09/18 PO 1248 Amlodipine Besylate 5 MG DAILY 09/18 1000 AC 09/18 PO 0917 Atenolol 50 MG DAILY 09/18 1000 AC 09/18 PO 0917 Atorvastatin Calcium 40 MG 2030 09/17 2030 AC 09/17 PO 1958 Ceftriaxone Sodium 1,000 MG DAILY 09/18 1000 CAN IV Ceftriaxone Sodium 0 .STK-MED ONE 09/17 1650 DC .ROUTE Clopidogrel Bisulfate 75 MG DAILY 09/18 1000 DC PO Fluoxetine HCl 40 MG DAILY 09/18 1000 DC PO Fluoxetine HCl 40 MG QPM 09/17 2200 AC 09/17 PO 2157 Heparin Sodium 5,000 UNIT Q8 09/17 2200 AC 09/18 (Porcine) SC 1341 Hydrochlorothiazide 25 MG QPM 09/17 2200 AC 09/17 PO 2231 Ibuprofen 400 MG Q6P PRN 09/17 1945 AC 09/18 PO 0830 Insulin Aspart 0 TIDAC 09/18 0800 AC 09/18 SC 1154 Levothyroxine Sodium 0.1 MG DAILY AC 09/18 0700 AC 09/18 PO 0529 Lorazepam 0.5 MG BID 09/17 2200 AC 09/18 PO 09/24 2159 0915 Losartan Potassium 100 MG QPM 09/18 2200 AC PO Losartan Potassium 200 MG QPM 09/17 2200 DC 09/17 PO 2231 Melatonin 5 MG AT BEDTIME 09/18 0330 AC 09/18 PO 0330 Patient Medication 1 ED ONE ONE 09/18 1600 DC Teaching ED 09/18 1601 Sodium Chloride 1,000 ML .Q10H 09/17 1700 AC 09/18 IV 0529 Last 24 Hrs of Lab/Rodríguez Results Last 24 Hrs of Labs/Mics: Laboratory Tests 09/18/17 0708: Rheum Factor Semi-Quant 37.1 H 09/18/17 0708: Cyclic Citrull Peptide Pending 09/18/17 0708: Anion Gap 12, Estimated GFR > 60, BUN/Creatinine Ratio 21.7, C-Reactive Prot, Quant 3.5 H, Cortisol AM Sample 18.5, CBC w Diff NO MAN DIFF REQ, RBC 3.68 L, MCV 90.5, MCH 30.9, MCHC 34.1, RDW 14.1, MPV 9.1, Gran % 79.6 H, Lymphocytes % 11.6 L, Monocytes % 5.6, Eosinophils % 2.8, Basophils % 0.4, Absolute Granulocytes 8.8 H, Absolute Lymphocytes 1.3, Absolute Monocytes 0.6, Absolute Eosinophils 0.3, Absolute Basophils 0, ESR Westergren Pending, ELIAS Titer Pending , Anti-Nuclear Antibody Pending Assessment/Plan Assessment: 77-year-old female with past medical history of HTN, HLD, DM, spinal stenosis, CVA (2017), hypothyroidism, gout, depression presents with complaints of diffuse generalized pain. She reports that she has increased swelling and pain in her left knee joint, and eventually Rt knee joint and bilateral finger joints. She denies fever/chills vomiting, cough, rash or sick contact. She was seen at [facility] 1 week ago where she had arthrocentesis of the Lt knee which was sent for tests and she received a cortisone shot in the same knee. Problem List 1. Gerealized Joint Pain and Swelling r/o Gout flare, RA, polymyalgia rheumatica 2. Generalized deconditioning 3. Asymptomatic Bacteriuria She is being treated and evaluated for following conditions #Gait Abnormality- unable to ambulate per patient with progressive symptoms. ED stated her PCP was questioning auto-immune disorde ESR and CRP have been elevated. Differentials include rheumatoid arthritis, gouty arthritis, polymyalgia rheumatica -Ortho consult placed -Rhematology consult placed -Records requested from orthopedic office as patient recently underwent arthrocentesis. -PT evaluation -STR placement? -ESR, CRP, ELIAS, RF, anti-CCP antibodies #Leukocytosis- noted on CBC. No definite evidence of focal infection. -WBC count trending downof infection -Monitor off antibiotics #DM2- on Metformin. -Will hold Metformin and follow glucose levels and give sliding scale insulin. #Hypothyroid- on Levothyroxine. -TSH mildly elevated -Continue levothyroxine -Check free T4 #HTN -Continue Amlodipine/Atenolol and substitute Losartan for Valsartan while in hospital. #H/O CVA -Continue Plavix, ASA and Atorvastatin. Diet: Diabetic diet DVT prophylaxis:ALPS, SC heparin Code status: DNR/DNI Problem List: 1. Multifactorial gait disorder Pain Ratin Pain Location: diffuse joints Pain Goal: Pain 4 or less Pain Plan: prn Tomorrow's Labs & Rationales: cbc bep Chuy Boudreaux MD 09/18/17 1442: Attending Review Statement Attending Statement Attending MD Statement: examined this patient, discuss w/resident/PA/HIGH SCHOOL PHYSICAL EDUCATION TEACHER, agreed w/resident/PA/HIGH SCHOOL PHYSICAL EDUCATION TEACHER, reviewed EMR data (avail) Attending Assessment/Plan: 77F PMH HTN, HL, DM2, spinal stenosis, hypothyroid, and prior CVA (6 months ago) , with recent left knee arthrocentesis for knee swelling, cortisone injections in cervical, lumbar spine as well as left knee, presents with a week of progressive worsening of left knee pain and tenderness, inability to ambulate due to pain, as well as symmetric diffuse joint pains in b/l MCP, wrists, PIP. Strong family history of autoimmune disease but no prior diagnosis for RA or other. Has had gout in the past. She otherwise feels well. On exam, her left knee is mildly swollen and very tender to the touch. Her hand and foot joints are tender but not swollen. Remaining exam is normal. Plan - Continue on general medicine - Hold antibiotics for now - Orthopedic and rheumatology consult - ESR, CRP, ELIAS, RF, anti-CCP antibodies - Motrin for pain - Continue home medications - DVT PPx
[2017-09-18 14:29] VITALS: BP 122/62
--- NOTE | 2017-09-18 18:12 | Cons- Rheumatology ---
General Information and HPI Consulting Request Date of Consult: 09/18/17 Requested By: Chuy Boudreaux MD Reason for Consult: Evalaute painful joints Source of Information: patient, family Exam Limitations: no limitations History of Present Illness: 77-year-old female who was admitted to the hospital yesterday with painful swollen joints. Essentially she was in her usual state of health having recovered from a small stroke until 2 weeks ago when she noted the onset of pain and swelling of her left knee. She was seen by an orthopedist who is treating her for spinal stenosis and had her left knee aspirated and injected with steroids. I M not sure whether the synovial fluid was sent for any testing but according to the patient's daughter it was not. She felt somewhat improved for a couple of days but within a week she developed pain and swelling of multiple joints including her hands wrists the other knee and both ankles. She has a past medical history of gout and has been on allopurinol but this did not appear to be related. Us far in the hospital workup reveals a positive rheumatoid factor at 37 units. Her sedimentation rate is markedly elevated at 85. An ELIAS and an anti-CCP antibody are pending. Allergies/Medications Allergies: Coded Allergies: NO KNOWN ALLERGIES (05/01/15) Home Med List: Allopurinol 100 MG TABLET 1 TAB PO DAILY GOUT (Reported) Amlodipine Besylate 5 MG TABLET 5 MG PO DAILY HTN . Aspirin (Aspirin*) 81 MG TAB.CHEW 1 TAB PO DAILY HEART HEALTH (Reported) Atenolol 50 MG TABLET 1 TAB PO DAILY HEART (Reported) Atorvastatin Calcium 40 MG TABLET 40 MG PO 2030 STROKE PREVENTION . Cholecalciferol (Vitamin D3) (Vitamin D3) 2,000 UNIT TABLET 1 TAB PO DAILY VITAMIN SUPPORT (Reported) Chromium Picolinate 1,000 MCG TABLET 0.5 TAB PO DAILY SUPPLEMENT (Reported) Clopidogrel Bisulfate (Plavix) 75 MG TABLET 75 MG PO DAILY STROKE PREVENTION . Cyanocobalamin (Vitamin B-12) 1,000 MCG TABLET 1 TAB PO DAILY VITAMIN SUPPORT (Reported) Fluoxetine HCl 20 MG CAPSULE 2 CAP PO DAILY DEPRESSION (Reported) Fluticasone/Vilanterol (Breo Ellipta 100-25 Mcg INH) 100 MCG-25 MCG/DOSE BLST.W.DEV 1 PUFF INH DAILY BREATHING PROBLEMS (Reported) Lactobacillus Acidophilus (Probiotic) 10 BILLION CELL CAPSULE 1 CAP PO DAILY GI (Reported) Levothyroxine Sodium 100 MCG TABLET 1 TAB PO DAILY AC THYROID (Reported) Lorazepam 0.5 MG TABLET 1 TAB PO BIDP PRN DEPRESSION (Reported) Magnesium Oxide 400 MG TABLET 1 TAB PO TID SUPPLEMENT (Reported) Metformin HCl (Metformin HCl ER) 500 MG TAB.ER.24H 1 TAB PO TID DIABETES ( Reported) Multivitamin (Daily Multiple Vitamin) 1 EACH TABLET 1 TAB PO DAILY VITAMIN SUPPORT (Reported) Potassium Chloride 10 MEQ TAB.ER.PRT 1 TAB PO DAILY PRN VITAMIN (Reported) Tylenol With Codeine (Tylenol With Codeine #3 Tablet) 300 MG-30 MG TABLET 1 TAB PO BIDP PRN PAIN Valsartan 320 MG TABLET 1 TAB PO DAILY HEART (Reported) Valsartan/Hydrochlorothiazide (Valsartan-Hctz 320-25 MG Tab) 320 MG-25 MG TABLET 1 TAB PO DAILY HTN (Reported) Review of Systems Review of Systems: She denies any fever or rash. She has no history of Raynaud's phenomenon. 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 Home Who Do You Live With? spouse Services at Home: None Primary Language: Citizen Of [place] Smoking Status: Current Everyday Smoker ETOH Use: denies use Illicit Drug Use: denies illicit drug use Living Will? yes Functional Ability ADLs Independent: dressing, eating, toileting, bathing. Ambulation: independent IADLs Independent: shopping, housework, finances, food prep, telephone, transportation , medication admin. Exam & Diagnostic Data Vital Signs and I&O Vital Signs Date Time Temp Pulse Resp B/P B/P Pulse O2 O2 Flow FiO2 Mean Ox Delivery Rate 09/18 1429 98.3 56 18 122/62 95 Room Air 09/18 0917 62 132/64 09/18 0917 62 132/64 09/18 0527 98.2 55 20 130/52 94 09/17 2333 59 140/70 09/17 2231 63 124/60 09/17 2231 63 124/60 09/17 2141 98.1 53 18 124/60 95 09/17 1812 97.9 59 20 140/56 94 Intake & Output 09/18 1600 09/18 0800 09/18 0000 Intake Total 1520 640 910 Output Total 650 0 Balance 870 640 910 Intake, IV 800 400 510 Intake, Oral 720 240 400 Number 0 Bowel Movements Output, Urine 650 0 Patient 190 lb Weight Weight Reported by Patient Measurement Method Physical Exam: On examination she is a well-developed well-nourished alert intelligent woman lying in bed. Her hands reveals he is able to make a fist although one or 2 PIP joints are slightly tender. The MCP joints are enlarged and tender but tickly the second and third on each hand. Her wrists have tenderness with limited motion elbows have no nodules or tenderness. Does have limited range of motion and are both tender to compression. Her knees reveal warmth and supra patellar effusions bilaterally flexion is limited to approximately 100. Her ankles are also somewhat tender. Assessment/Plan Assessment: His represents acute onset of polyarticular arthritis is likely RA. Recommendations: I recommend beginning prednisone 10 mg twice a day for the first 3 days. Hopefully or joint inflammation. Side to the point where she could begin to ambulate. She will deathly need a disease modifying drug and I would recommend methotrexate 10 or 15 mg once a week orally. She also needs folic acid 1 mg daily to prevent methotrexate toxicity. I will see her in 48 hours and follow her up upon discharge from the hospital. On her response to the prednisone she may either go home or quite possibly go for short-term rehabilitation to ambulate Consult Acknowledgment - Thank you for your consult request.
[2017-09-18 22:45] VITALS: BP 144/68
[2017-09-19 07:05] VITALS: BP 100/60
--- NOTE | 2017-09-19 07:39 | PN- Housestaff ---
Magdiel PEREZ,[facility] 09/19/17 0739: Subjective Follow-up For: Rheumatoid arthritis versus gout Subjective: Seen and examined. Reports improvement in symptoms. Denies fevers chills or any other complaints. On her pain in the joints and swelling is improving other review of system is negative Review of Systems Constitutional: Reports: see HPI. Objective Last 24 Hrs of Vital Signs/I&O Vital Signs Date Time Temp Pulse Resp B/P B/P Pulse O2 O2 Flow FiO2 Mean Ox Delivery Rate 09/19 0932 98.1 59 18 127/73 09/19 0746 98.1 59 18 127/73 93 Room Air 09/18 2245 98.2 56 18 144/68 94 Room Air 09/18 2157 144/68 09/18 1429 98.3 56 18 122/62 95 Room Air Intake & Output 09/19 1600 09/19 0800 09/19 0000 Intake Total 920 240 Output Total 400 1000 Balance 520 -760 Intake, IV 800 Intake, Oral 120 240 Output, Urine 400 1000 Physical Exam General Appearance: Alert, Oriented X3, Cooperative Other Physical Findings: She is able to make a fist although one or 2 PIP joints are slightly tender. The MCP joints are enlarged and tender Her wrists have tenderness with limited motion elbows have no nodules or tenderness. Does have limited range of motion and are both tender to compression. Her knees reveal warmth and supra patellar effusions bilaterally flexion is limited Her ankels are tender as well Current Medications: Current Medications Sig/Vani Start time Last Medication Dose Route Stop Time Status Admin Acetaminophen 1,000 MG Q8 09/18 1652 AC 09/19 N/A 1 UNIT IV 09/19 1414 1304 Acetaminophen 650 MG Q6P PRN 09/17 1700 AC PO Allopurinol 100 MG DAILY 09/18 1128 AC 09/19 PO 0932 Amlodipine Besylate 5 MG DAILY 09/18 1000 AC 09/19 PO 0932 Atenolol 50 MG DAILY 09/18 1000 AC 09/19 PO 0932 Atorvastatin Calcium 40 MG 2030 09/17 2030 AC 09/18 PO 215 Fluoxetine HCl 40 MG QPM 09/17 2200 AC 09/18 PO 2157 Folic Acid 1 MG DAILY 09/19 1130 AC 09/19 PO 1304 Folic Acid 1 MG DAILY@0800 09/19 1000 DC PO Heparin Sodium 5,000 UNIT Q8 09/17 2200 AC 09/19 (Porcine) SC 1306 Hydrochlorothiazide 25 MG QPM 09/17 2200 AC 09/18 PO 1841 Ibuprofen 400 MG Q6P PRN 09/17 1945 AC 09/18 PO 2158 Insulin Aspart 0 TIDAC 09/18 0800 AC 09/19 SC 1204 Levothyroxine Sodium 0.1 MG DAILY AC 09/18 0700 AC 09/19 PO 0835 Lorazepam 0.5 MG BID 09/17 2200 AC 09/19 PO 09/24 2159 0932 Losartan Potassium 100 MG QPM 09/18 2200 AC 09/18 PO 2157 Melatonin 5 MG AT BEDTIME 09/18 0330 AC 09/18 PO 2157 Methotrexate 10 MG QWED@0800 09/19 1000 AC 09/19 PO 1044 Patient Medication 1 ED ONE ONE 09/19 1100 DC 09/19 Teaching ED 09/19 1101 1204 Patient Medication 1 ED ONE ONE 09/18 1600 DC 09/18 Teaching ED 09/18 1601 1647 Prednisone 10 MG BID 09/18 2199 AC 09/19 PO 09/21 1001 0933 Sodium Chloride 1,000 ML .Q10H 09/17 1700 AC 09/19 IV 1045 Last 24 Hrs of Lab/Rodríguez Results Last 24 Hrs of Labs/Mics: Laboratory Tests 09/19/17 0621: CBC w Diff NO MAN DIFF REQ, RBC 3.43 L, MCV 90.4, MCH 31.2 H, MCHC 34.5, RDW 13.9, MPV 9.3, Gran % 83.1 H, Lymphocytes % 12.8 L, Monocytes % 3.2, Eosinophils % 0.5, Basophils % 0.4, Absolute Granulocytes 8.3 H, Absolute Lymphocytes 1.3, Absolute Monocytes 0.3, Absolute Eosinophils 0, Absolute Basophils 0 Assessment/Plan Assessment: 77-year-old female with past medical history of HTN, HLD, DM, spinal stenosis, CVA (2017), hypothyroidism, gout, depression presents with complaints of diffuse generalized pain. She reports that she has increased swelling and pain in her left knee joint, and eventually Rt knee joint and bilateral finger joints. She denies fever/chills vomiting, cough, rash or sick contact. She was seen at [facility] 1 week ago where she had arthrocentesis of the Lt knee which was sent for tests and she received a cortisone shot in the same knee. Problem List 1. Gerealized Joint Pain and Swelling r/o Gout flare, RA, polymyalgia rheumatica 2. Generalized deconditioning 3. Asymptomatic Bacteriuria She is being treated and evaluated for following conditions #Gerealized Joint Pain and Swelling - unable to ambulate per patient with progressive symptoms. Differentials include rheumatoid arthritis, gouty arthritis, polymyalgia rheumatica -ESR, CRP elevated, RF 37 units , ELIAS, anti-CCP antibodies pending -Rheumatology consult was placed with Dr. Muro who is under impression of acute onset of polyarticular arthritis is likely RA and recommended patient to be statred on prednisone 10 mg twice a day and methotrexate along with folic acid supplementation. -Ortho consult placed, awaiting recommendations -Records requested from orthopedic office as patient recently underwent arthrocentesis. -PT evaluation #Leukocytosis- noted on CBC on admission. No definite evidence of focal infection. -WBC count trending down -Monitor off antibiotics #DM2 -Will hold Metformin and follow glucose levels and give sliding scale insulin. #Hypothyroidism -TSH mildly elevated, Check free T4 -Continue levothyroxine #HTN -Continue Amlodipine/Atenolol and substitute Losartan for Valsartan while in hospital. #H/O CVA -Continue Plavix, ASA and Atorvastatin. Diet: Diabetic diet DVT prophylaxis:ALPS, SC heparin Code status: DNR/DNI Problem List: 1. Knee effusion, left Pain Ratin Pain Location: diffuse joints Pain Goal: Pain 4 or less Pain Plan: prn Tomorrow's Labs & Rationales: cbc Chuy Boudreaux MD 09/19/17 1111: Attending MD Review Statement Attending Statement Attending MD Statement: examined this patient, discuss w/resident/PA/UNION LABORER, agreed w/resident/PA/UNION LABORER, reviewed EMR data (avail) Attending Assessment/Plan: 77F PMH HTN, HL, DM2, spinal stenosis, hypothyroid, and prior CVA (6 months ago) , with recent left knee arthrocentesis for knee swelling, cortisone injections in cervical, lumbar spine as well as left knee, presents with a week of progressive worsening of left knee pain and tenderness, inability to ambulate due to pain, as well as symmetric diffuse joint pains in b/l MCP, wrists, PIP. Strong family history of autoimmune disease but no prior diagnosis for RA or other. Has had gout in the past. She feels wells today, though her pain has no improved much. On exam, her left knee is mildly swollen and very tender to the touch. Her hand and foot joints are tender but not swollen. Remaining exam is normal. 1. Rheumatoid arthritis flare 2. Left knee effusion 3. Right knee effusion 4. Gait instability Plan - Continue on general medicine - Prednisone 10mg BID - Methotrexate 10mg weekly - Folate daily - Orthopedic and rheumatology consult - ESR, CRP, ELIAS, RF, anti-CCP antibodies - Motrin for pain - Continue home medications - DVT PPx
[2017-09-19 07:46] VITALS: BP 127/73
[2017-09-19 08:20] LABS: ABSOLUTE BASOPHIL COUNT 0 /CUMM (0.0-0.2); ABSOLUTE EOSINOPHIL COUNT 0 /CUMM (0.0-0.7); ABSOLUTE GRANULOCYTE CT 8.3 /CUMM (1.4-6.5); ABSOLUTE LYMPH COUNT 1.3 /CUMM (1.2-3.4); ABSOLUTE MONOCYTE COUNT 0.3 /CUMM (0.10-0.60); BASOPHIL % 0.4 % (0.0-2.0); EOSINOPHIL % 0.5 % (0-5); GRANULOCYTE % 83.1 % (42.2-75.2); MEAN CORPUSCULAR HGB 31.2 PG (27.0-31.0); MEAN CORPUSCULAR HGB CONC 34.5 G/DL (33.0-37.0); MEAN CORPUSCULAR VOLUME 90.4 FL (81.0-99.0); MEAN PLATELET VOLUME 9.3 FL (7.4-10.4); PLATELET COUNT 331 /CUMM (130-400); RBC DISTRIBUTION WIDTH 13.9 % (11.5-14.5); RED BLOOD CELL CT 3.43 /CUMM (4.20-5.40); WHITE BLOOD CELL COUNT 9.9 /CUMM (4.8-10.8)
[2017-09-19 14:28] VITALS: BP 148/72
[2017-09-19 23:40] VITALS: BP 138/60
[2017-09-20 06:49] VITALS: BP 158/80
--- NOTE | 2017-09-20 07:33 | PN- Housestaff ---
Subjective Follow-up For: Rheumatoid arthritis Subjective: Patient is seen and examined. Reports improvement in symptoms Review of Systems Constitutional: Reports: see HPI. Objective Last 24 Hrs of Vital Signs/I&O Vital Signs Date Time Temp Pulse Resp B/P B/P Pulse O2 O2 Flow FiO2 Mean Ox Delivery Rate 09/20 0934 64 142/82 09/20 0934 64 142/82 09/20 0811 Room Air 09/20 0649 98.0 58 20 158/80 97 Room Air 09/19 2340 97.9 51 20 138/60 94 Room Air 09/19 2155 64 130/68 09/19 1730 Room Air 09/19 1428 97.8 51 18 148/72 96 Room Air Intake & Output 09/20 1600 09/20 0800 09/20 0000 Intake Total 920 1400 Output Total 350 600 Balance 570 800 Intake, IV 800 1400 Intake, Oral 120 Output, Urine 350 600 Physical Exam General Appearance: Alert, Oriented X3, Cooperative Cardiovascular: Normal S1, Normal S2, No Murmurs Lungs: Clear to Auscultation Abdomen: Normal Bowel Sounds Current Medications: Current Medications Sig/Vani Start time Last Medication Dose Route Stop Time Status Admin Acetaminophen 1,000 MG Q8 09/18 1652 DC 09/19 N/A 1 UNIT IV 09/19 1414 1304 Acetaminophen 650 MG Q6P PRN 09/17 1700 DCD PO Allopurinol 100 MG DAILY 09/18 1128 DCD 09/20 PO 0934 Amlodipine Besylate 5 MG DAILY 09/18 1000 DCD 09/20 PO 0934 Atenolol 50 MG DAILY 09/18 1000 DCD 09/20 PO 0934 Atorvastatin Calcium 40 MG 2030 09/17 2030 DCD 09/19 PO 2154 Docusate Sodium 100 MG BID 09/20 1000 DCD 09/20 PO 0934 Fluoxetine HCl 40 MG QPM 09/17 2200 DCD 09/19 PO 2201 Folic Acid 1 MG DAILY 09/19 1130 DCD 09/20 PO 0934 Heparin Sodium 5,000 UNIT Q8 09/17 2199 DCD 09/20 (Porcine) SC 0518 Hydrochlorothiazide 25 MG QPM 09/17 2200 DCD 09/19 PO 2154 Ibuprofen 400 MG .STK-MED ONE 09/19 1736 DC PO 09/19 1737 Ibuprofen 400 MG Q6P PRN 09/17 1945 DCD 09/20 PO 0751 Insulin Aspart 0 TIDAC 09/18 0800 DCD 09/20 SC 0751 Levothyroxine Sodium 0.1 MG DAILY AC 09/18 0700 DCD 09/20 PO 0517 Lorazepam 0.25 MG ONCE PRN 09/19 1530 DC 09/19 PO 2208 Lorazepam 0.5 MG BID 09/17 2200 DCD 09/20 PO 09/24 2159 0935 Losartan Potassium 100 MG QPM 09/18 2200 DCD 09/19 PO 215 Melatonin 5 MG AT BEDTIME 09/18 0330 DCD 09/19 PO 2155 Methotrexate 10 MG QWED@0800 09/19 1000 DCD 09/19 PO 1044 Polyethylene Glycol 17 GM DAILY 09/20 1000 DCD 09/20 PO 1009 Prednisone 10 MG BID 09/18 2199 DCD 09/20 PO 09/21 1001 0934 Senna 187 MG AT BEDTIME 09/20 2199 DCD PO Sodium Chloride 1,000 ML .Q10H 09/17 1700 DC 09/20 IV 0444 Last 24 Hrs of Lab/Rodríguez Results Last 24 Hrs of Labs/Mics: Laboratory Tests 09/20/17 0608: CBC w Diff NO MAN DIFF REQ, RBC 3.35 L, MCV 90.9, MCH 30.5, MCHC 33.6, RDW 14.2 , MPV 9.5, Gran % 74.6, Lymphocytes % 18.8 L, Monocytes % 5.6, Eosinophils % 0.6, Basophils % 0.4, Absolute Granulocytes 6.5, Absolute Lymphocytes 1.6, Absolute Monocytes 0.5, Absolute Eosinophils 0.1, Absolute Basophils 0 Assessment/Plan Assessment: The patient is 77-year-old female with past medical history of hypertension, hyperlipidemia type 2 diabetes, spinal stenosis, hypothyroidism, gout and prior CVA 6 months ago. She was released from short-term rehabilitation secondary to her CVA approximately 3 weeks ago before her admission. She presented to [facility] on 09/17 with complaint of f progressive worsening of left knee pain and tenderness, inability to ambulate due to pain, as well as symmetric diffuse joint pains in b/l MCP, wrists, ankles x 1 week. Before admission the patient was seen by [facility] for left knee swelling and pain and underwent arthrocentesis along with cortisone injection; as per patient's daughter synovitis fluid was not sent for testing. She felt somewhat improved for a couple of days but within a week she developed pain and swelling of multiple joints including her hands, wrists, the other knee and both ankles. Patient has history of gout and is on allopurinol for that. She does not carry a diagnosis of rheumatoid arthritis however her family history is positive for that. Vitals on presentation stable and WNL Admission Labs were significant for leukocytosis WBC count of 14, elevated ESR, elevated CRP, mild hyponatremia, UA was positive for moderate leukoesterase however patient did not have any symptoms so was most likely asymptomatic bacteriuria CXR showed Stable appearance of the heart and lungs. Increased interstitial markings involving both the upper and lower lobes likely represents underlying interstitial fibrotic disease. Lower extremity Doppler ruled out DVT She was admitted to general medicine floor and he is being treated and evaluated for symmetrical and bilateral joint swelling and tenderness. Differentials included rheumatoid arthritis, PMR, gouty arthritis. Patient was evaluated by Dr. Lobito Muro rheumatology. For her acute onset polyarticular arthritis, rheumatoid arthritis is most likely explanation given elevated ESR and positive rheumatoid factor at 37 units. -The patient has been started on prednisone 10 mg twice a day, methotrexate weekly and daily folic acid documentation for the treatment. The dose of prednisone will be decreased on to 09/23 to 10 mg the morning and 5 mg in the evening. Patient has improved symptomatically and WBC count is WNL. She has been evaluated by PT and is deemed safe for home discharge -ELIAS is negative, anti-CCP antibody are pending -Patient has been counseled to follow up with Dr. Muro after discharge -Records of arthrocentesis have been requested from orthopedic office though not received yet. Patient has been counseled to follow-up with orthopedics after discharge. #Leukocytosis- noted on CBC on admission. No definite evidence of focal infection. -WBC count trending down -Monitor off antibiotics #DM2 -Will hold Metformin and follow glucose levels and give sliding scale insulin. #Hypothyroidism -TSH mildly elevated, Check free T4 -Continue levothyroxine #HTN -Continue Amlodipine/Atenolol and substitute Losartan for Valsartan while in hospital. #H/O CVA -Continue Plavix, ASA and Atorvastatin. Diet: Diabetic diet DVT prophylaxis:ALPS, SC heparin Code status: DNR/DNI Problem List: 1. Acute rheumatoid arthritis Pain Ratin Pain Location: diffuse joints Pain Goal: Pain 4 or less Pain Plan: prn Tomorrow's Labs & Rationales: none d/c
[2017-09-20 08:30] LABS: ABSOLUTE BASOPHIL COUNT 0 /CUMM (0.0-0.2); ABSOLUTE EOSINOPHIL COUNT 0.1 /CUMM (0.0-0.7); ABSOLUTE GRANULOCYTE CT 6.5 /CUMM (1.4-6.5); ABSOLUTE LYMPH COUNT 1.6 /CUMM (1.2-3.4); ABSOLUTE MONOCYTE COUNT 0.5 /CUMM (0.10-0.60); BASOPHIL % 0.4 % (0.0-2.0); EOSINOPHIL % 0.6 % (0-5); GRANULOCYTE % 74.6 % (42.2-75.2); HEMATOCRIT 30.4 % (37-47); MEAN CORPUSCULAR HGB 30.5 PG (27.0-31.0); MEAN CORPUSCULAR HGB CONC 33.6 G/DL (33.0-37.0); MEAN CORPUSCULAR VOLUME 90.9 FL (81.0-99.0); MEAN PLATELET VOLUME 9.5 FL (7.4-10.4); PLATELET COUNT 326 /CUMM (130-400); RBC DISTRIBUTION WIDTH 14.2 % (11.5-14.5); RED BLOOD CELL CT 3.35 /CUMM (4.20-5.40); WHITE BLOOD CELL COUNT 8.7 /CUMM (4.8-10.8)
--- NOTE | 2017-09-20 08:43 | PN- Rheumatology ---
Subjective Subjective: Is definitely feeling better today some 36 hours after beginning prednisone 10 mg twice a day. She has less stiffness and was even able to ambulate yesterday. She does complain of mild increased jitteriness probably secondary to the steroids. She has had no chills or sweats. She remains on IV fluids but no antibiotics. Objective Vital Signs and I&Os Vital Signs Date Time Temp Pulse Resp B/P B/P Pulse O2 O2 Flow FiO2 Mean Ox Delivery Rate 09/20 0811 Room Air 09/20 0649 98.0 58 20 158/80 97 Room Air 09/19 2340 97.9 51 20 138/60 94 Room Air 09/19 2155 64 130/68 09/19 1730 Room Air 09/19 1428 97.8 51 18 148/72 96 Room Air 09/19 0932 98.1 59 18 127/73 Intake & Output 09/20 1600 09/20 0800 09/20 0000 09/19 1600 09/19 0800 09/19 0000 Intake Total 920 1400 1400 920 240 Output Total 350 284 617 5845 Balance 813 771 3417 520 -760 Intake, IV 800 1400 800 800 Intake, Oral 120 600 120 240 Output, Urine 350 483 741 9539 Physical Exam: On examination there is still some puffiness of the MCP joints of her hands but she is able to make a fist more easily. There is less tenderness of the wrists and shoulders although still with some limitation of motion. Knees still are somewhat enlarged but not warm or tender with some limited flexion. Current Medications: Current Medications Sig/Vani Start time Last Medication Dose Route Stop Time Status Admin Acetaminophen 1,000 MG Q8 09/18 1652 DC 09/19 N/A 1 UNIT IV 09/19 1414 1304 Acetaminophen 650 MG Q6P PRN 09/17 1700 AC PO Allopurinol 100 MG DAILY 09/18 1128 AC 09/19 PO 0932 Amlodipine Besylate 5 MG DAILY 09/18 1000 AC 09/19 PO 0932 Atenolol 50 MG DAILY 09/18 1000 AC 09/19 PO 0932 Atorvastatin Calcium 40 MG 2030 09/17 2030 AC 09/19 PO 2154 Docusate Sodium 100 MG BID 09/20 1000 AC PO Fluoxetine HCl 40 MG QPM 09/17 2200 AC 09/19 PO 2201 Folic Acid 1 MG DAILY 09/19 1130 AC 09/19 PO 1304 Folic Acid 1 MG DAILY@0800 09/19 1000 DC PO Heparin Sodium 5,000 UNIT Q8 09/17 2200 AC 09/20 (Porcine) SC 0518 Hydrochlorothiazide 25 MG QPM 09/17 2200 AC 09/19 PO 2154 Ibuprofen 400 MG .STK-MED ONE 09/19 1736 DC PO 09/19 1737 Ibuprofen 400 MG Q6P PRN 09/17 1945 AC 09/20 PO 0751 Insulin Aspart 0 TIDAC 09/18 0800 AC 09/20 SC 0751 Levothyroxine Sodium 0.1 MG DAILY AC 09/18 0700 AC 09/20 PO 0517 Lorazepam 0.25 MG ONCE PRN 09/19 1530 DC 09/19 PO 2208 Lorazepam 0.5 MG BID 09/17 2200 AC 09/19 PO 09/24 2159 2208 Losartan Potassium 100 MG QPM 09/18 2200 AC 09/19 PO 2155 Melatonin 5 MG AT BEDTIME 09/18 0330 AC 09/19 PO 2155 Methotrexate 10 MG QWED@0800 09/19 1000 AC 09/19 PO 1044 Patient Medication 1 ED ONE ONE 09/19 1100 DC 09/19 Teaching ED 09/19 1101 1204 Polyethylene Glycol 17 GM DAILY 09/20 1000 AC PO Prednisone 10 MG BID 09/18 2200 AC 09/19 PO 09/21 1001 2154 Senna 187 MG AT BEDTIME 09/20 2200 AC PO Sodium Chloride 1,000 ML .Q10H 09/17 1700 DC 09/20 IV 0444 Assessment/Plan Assessment: My assessment is seropositive rheumatoid arthritis with some improvement on steroids. She also was begun on methotrexate 10 mg once a week on Wednesdays. She is also on folic acid 1 mg daily. Plan: I would continue her on prednisone 10 mg twice a day for a total of 5 days on Sunday, September 23 I would reduce her to 10 mg in the morning and 5 mg in the evening. From the Rheumatology perspective I feel she could be discharged home home physical therapy as well as home health would be helpful. I will follow her up as an outpatient in approximately 3 weeks.
[2017-09-20] MEDS ORDERED: FOLIC ACID1 M1 PO ×3 (09:21→10:52)
[2017-09-20] MEDS ORDERED: PREDNISONE5 M1 PO ×2 (09:21→10:52)
[2017-09-20] MEDS ORDERED: TREXALL10 M1 PO ×2 (09:21→10:52)
--- NOTE | 2017-09-20 09:25 | Patient Discharge Instructions ---
Discharge Instructions General Discharge Information You were seen/treated for: Rheumatoid arthritis Joint swelling and tenderness Watch for these problems: Fever, chills, redness, swelling and pain of the joints Special Instructions: Please follow-up with PCP after discharge Please follow-up with Dr. Muro within 3 weeks of discharge Please follow-up with orthopedics after discharge Please take medications as directed Diet Recommended Diet: Diabetic Activity Activity Self Limited: Yes Acute Coronary Syndrome Inclusion Criteria At DC or during hospital stay patient has or had the following: ACS DIAGNOSIS No Discharge Core Measures Meds if any: Prescribed or Continued at Discharge Meds if any: NOT Prescribed or Continued at Discharge Congestive Heart Failure Inclusion Criteria At DC or during hospital stay patient has or had the following: CHF DIAGNOSIS No Discharge Core Measures Meds if any: Prescribed or Continued at Discharge Meds if any: NOT Prescribed or Continued at Discharge Cerebrovascular accident Inclusion Criteria At DC or during hospital stay patient has or had the following: CVA/TIA Diagnosis No Discharge Core Measures Meds if any: Prescribed or Continued at Discharge Meds if any: NOT Prescribed or Continued at Discharge Venous thromboembolism Inclusion Criteria VTE Diagnosis No VTE Type NONE VTE Confirmed by (Test) NONE Discharge Core Measures - Per Current guidelines, there needs to be overlap - treatment for the first 5 days of Warfarin therapy. - If discharged on Warfarin prior to 5 days of - overlap therapy, the patient will need to be - assessed for post discharge needs including - *Post discharge parental anticoagulation - *Warfarin and/or parental anticoagulation education - *Follow up date to check INR post discharge At least 5 days overlap therapy as Inpatient No Meds if any: Prescribed or Continued at Discharge Note: Overlap Therapy is Warfarin and Anticoagulant Meds if any: NOT Prescribed or Continued at Discharge
[2017-09-20 09:34] VITALS: BP 142/82
--- NOTE | 2017-09-20 10:47 | Discharge Summary ---
Visit Information Visit Dates Admission Date: 09/17/17 Discharge Date: 09/20/17 Hospital Course Course Attending Physician: Chuy Boudreaux MD Primary Care Physician: Salome Cortez Hospital Course: The patient is 77-year-old female with past medical history of hypertension, hyperlipidemia type 2 diabetes, spinal stenosis, hypothyroidism, gout and prior CVA 6 months ago. She was released from short-term rehabilitation secondary to her CVA approximately 3 weeks ago before her admission. She presented to [facility] ED on 09/17 with complaint of f progressive worsening of left knee pain and tenderness, inability to ambulate due to pain, as well as symmetric diffuse joint pains in b/l MCP, wrists, ankles x 1 week. Before admission the patient was seen by [facility] for left knee swelling and pain and underwent arthrocentesis along with cortisone injection; as per patient's daughter synovitis fluid was not sent for testing. She felt somewhat improved for a couple of days but within a week she developed pain and swelling of multiple joints including her hands, wrists, the other knee and both ankles. Patient has history of gout and is on allopurinol for that. She does not carry a diagnosis of rheumatoid arthritis however her family history is positive for that. Vitals on presentation stable and WNL Admission Labs were significant for leukocytosis WBC count of 14, elevated ESR, elevated CRP, mild hyponatremia, UA was positive for moderate leukoesterase however patient did not have any symptoms so was most likely asymptomatic bacteriuria CXR showed Stable appearance of the heart and lungs. Increased interstitial markings involving both the upper and lower lobes likely represents underlying interstitial fibrotic disease. Lower extremity Doppler ruled out DVT She was admitted to general medicine floor and was treated and evaluated for symmetrical and bilateral joint swelling and tenderness. Differentials included rheumatoid arthritis, PMR, gouty arthritis. Orthopedics and rheumatology specialities were consulted. Patient was evaluated by Dr. Lobito Grant rheumatology. For her acute onset polyarticular arthritis, rheumatoid arthritis is most likely explanation given elevated ESR and positive rheumatoid factor at 37 units. -The patient has been started on prednisone 10 mg twice a day, methotrexate weekly and daily folic acid documentation for the treatment. The dose of prednisone will be decreased on to 09/23 to 10 mg the morning and 5 mg in the evening. Patient has improved symptomatically and WBC count is WNL. She has been evaluated by PT and is deemed safe for home discharge -ELIAS is negative, anti-CCP antibody are pending -Patient has been counseled to follow up with Dr. Grant after discharge -Records of arthrocentesis have been requested from orthopedic office though not received yet. -Patient has been counseled to follow-up with orthopedics after discharge. -Her TSH and free T4 were mildly elevated and with her history of hypothyroidism will require follow-up by PCP All her home medications were continued, Losartan was substituted for Valsartan while in hospital. Metformin was held and patient was maintained on insulin sliding scale DVT prophylaxis was achieved with ALPS She was DNR/DNI during her stay Allergies: Coded Allergies: NO KNOWN ALLERGIES (05/01/15) Disposition Summary Disposition Principal Diagnosis: Rheumatoid arthritis Additional Diagnosis: History of hypothyroidism and diabetes mellitus Discharge Disposition: home or self care Discharge Instructions General Discharge Information Code Status: Do Not Resucitate/Intubat Patient's Diet: Diabetic Patient's Activity: As tolerated Follow-Up Instructions/Appts: Follow-up with rheumatology after 3 weeks of discharge Follow-up with PCP Follow-up with orthopedics Medications at Discharge Discharge Medications: Continue taking these medications: Fluticasone/Vilanterol (Breo Ellipta 100-25 Mcg INH) 100 MCG-25 MCG/DOSE BLST.W.DEV 1 PUFF Inhale through mouth DAILY Qty = 60 Comments: NOT GIVEN IN HOSPITAL Levothyroxine Sodium (Levothyroxine Sodium) 100 MCG TABLET 1 Tablet ORAL DAILY BEFORE BREAKFAST Qty = 90 Comments: Last Taken: 09/20/17 Time: 5:30 AM Atenolol (Atenolol) 50 MG TABLET 1 Tablet ORAL DAILY Qty = 90 Comments: Last Taken: 09/20/17 Time: 9:30 AM Valsartan (Valsartan) 320 MG TABLET 1 Tablet ORAL DAILY Qty = 90 Comments: Last Taken: 09/19/17 Time: 10:00 PM Fluoxetine HCl (Fluoxetine HCl) 20 MG CAPSULE 2 Capsule ORAL DAILY Qty = 90 Comments: Last Taken: 09/19/17 Time: 10:00 PM Metformin HCl (Metformin HCl ER) 500 MG TAB.ER.24H 1 Tablet ORAL THREE TIMES DAILY Qty = 270 Comments: NOT GIVEN IN THE HOSPITAL Allopurinol (Allopurinol) 100 MG TABLET 1 Tablet ORAL DAILY Qty = 30 Comments: Last Taken: 09/20/17 Time: 9:30 AM Chromium Picolinate (Chromium Picolinate) 1,000 MCG TABLET 0.5 Tablet ORAL DAILY Comments: NOT GIVEN IN THE HOSPITAL Lactobacillus Acidophilus (Probiotic) 10 BILLION CELL CAPSULE 1 Capsule ORAL DAILY Comments: NOT GIVEN IN HOSPITAL Cholecalciferol (Vitamin D3) (Vitamin D3) 2,000 UNIT TABLET 1 Tablet ORAL DAILY Comments: NOT GIVEN IN THE HOSPITAL Multivitamin (Daily Multiple Vitamin) 1 EACH TABLET 1 Tablet ORAL DAILY Comments: NOT GIVEN IN HOSPITAL Cyanocobalamin (Vitamin B-12) 1,000 MCG TABLET 1 Tablet ORAL DAILY Comments: NOT GIVEN IN HOSPITAL Magnesium Oxide (Magnesium Oxide) 400 MG TABLET 1 Tablet ORAL THREE TIMES DAILY Comments: NOT GIVEN IN HOSPITAL Aspirin (Aspirin*) 81 MG TAB.CHEW 1 Tablet ORAL DAILY Comments: NOT GIVEN IN HOSPITAL Atorvastatin Calcium (Atorvastatin Calcium) 40 MG TABLET 40 Milligram ORAL 2030 Qty = 30 Instructions: . Comments: Last Taken: 09/19/17 Time: 10:00 PM Amlodipine Besylate (Amlodipine Besylate) 5 MG TABLET 5 Milligram ORAL DAILY Qty = 30 Instructions: . Comments: Last Taken: 09/19/17 Time: 9:30 AM Lorazepam (Lorazepam) 0.5 MG TABLET 1 Tablet ORAL 2 x Daily as needed as needed for DEPRESSION Qty = 60 Comments: Last Taken: 09/20/17 Time: 9:30 AM Potassium Chloride (Potassium Chloride) 10 MEQ TAB.ER.PRT 1 Tablet ORAL DAILY as needed for VITAMIN Qty = 30 Comments: NOT GIVEN IN HOSPITAL Valsartan/Hydrochlorothiazide (Valsartan-Hctz 320-25 MG Tab) 320 MG-25 MG TABLET 1 Tablet ORAL DAILY Qty = 90 Comments: Last Taken: 09/19/17 Time: 10:00 PM (COZZAR GIVEN) Tylenol With Codeine (Tylenol With Codeine #3 Tablet) 300 MG-30 MG TABLET 1 Tablet ORAL 2 x Daily as needed as needed for PAIN Qty = 15 Comments: NOT GIVEN IN HOSPITAL Start taking the following new medications: Folic Acid (Folic Acid) 1 MG TABLET 1 Tablet ORAL DAILY Qty = 60 No Refills Instructions: . Comments: Last Taken: 09/20/17 Time: 9:30 AM Prednisone (Prednisone) 5 MG TABLET 0 ORAL SEE INSTRUCTIONS Qty = 70 No Refills Instructions: . Comments: TAKE 10MG (2 TABS) IN AM & 10MG (2 TABS) IN PM ON 09/20, 09/21 AND 09/22 TAKE 10MG (2 TABS) IN AM & 5MG (1 TAB) IN PM ON 09/23 CONTIUNE 2 TABS IN AM & 1 TAB IN PM TILL U SEE DR. GRANT. Last Taken: 09/20/17 Time: 9:30 AM Methotrexate Sodium (Trexall) 10 MG TABLET 1 Tablet ORAL EVERY SUNDAY Qty = 15 No Refills Instructions: . Comments: Last Taken: 09/19/17 Time: 10:45 AM Docusate Sodium (Colace) 100 MG CAPSULE 1 Capsule ORAL TWICE DAILY as needed for constipation Qty = 60 No Refills Comments: Last Taken: 09/20/17 Time: 9:30 AM Copies To: Denisha PEREZ,Anthony Richardson; Kim PEREZ,Chandrakant Childs; Bhaskar PEREZ,Lobito Quinteros; Av ARAUZ,Salome Attending MD Review Statement Documenting Attending: Chuy Boudreaux MD
[2017-09-20] MEDS ORDERED: COLACE100 M1 PO (10:52)
== END 2017-09-20 11:25 | DRG 547 ==
LOC: ERH 09:59 → 2NB 16:12 → ERHI 16:12 → ENRESERV 16:53 → ENTRNSPT 17:31 → EDTRNSPTSTS 17:42 → EDTRNSPT 17:42 → 2NB 17:53 → CMPTRNSPT 18:03 → 2NB 09-18 13:38 → ENPENDDIS 09-20 10:28 → ENTRNSPT 09-20 11:17 → EDTRNSPT 09-20 11:19 → EDTRNSPTSTS 09-20 11:19 → 2NB 09-20 11:25 → CMPTRNSPT 09-20 11:47
PROVIDERS: Internal Medicine; Physician Assistant Medical; Student in an Organized Health Care Education/Training Program
DX: M06.9 Rheumatoid arthritis, unspecified (principal); E11.9 Type 2 diabetes mellitus without complications; D72.829 Elevated white blood cell count, unspecified; E03.9 Hypothyroidism, unspecified; E78.5 Hyperlipidemia, unspecified; I10 Essential (primary) hypertension; R26.9 Unspecified abnormalities of gait and mobility; Z79.84 Long term (current) use of oral hypoglycemic drugs; M25.462 Effusion, left knee; M25.461 Effusion, right knee; M48.00 Spinal stenosis, site unspecified; Z86.73 Personal history of transient ischemic attack (TIA), and cerebral infarction without residual deficits; Z79.82 Long term (current) use of aspirin; F32.9 Major depressive disorder, single episode, unspecified; F17.200 Nicotine dependence, unspecified, uncomplicated; Z66 Do not resuscitate
CPT/HCPCS: 2NBSP; 86200; 36415; 36592; 71046; 81001; 82436; 86431; 87040; 87086; 93005; 93010; 93970; 97110-GO; 97116-GO; 97161-GP; 97530-GO; J0131; J0696; J1644; J3490; J7512; J8610